=== PATIENT | female | born 1980 | race Caucasian/White ===

== ENCOUNTER 2016-09-15 11:34 | Emergency (ER) | payer OTHER ==
[~2016-09-15 11:34] MED LIST: ACETAZOLAMIDE250 MG; ALBUTEROL17 GM; ANAPROX DS550 MG PO; BENTYL20 MG PO; COMPAZINE10 M PO; ELAVIL50 MG; HYDROCODONE/APA1 TAB; LORATADINE10 MG; PHENERGAN25 MG PO; PHENERGAN50 MG PO; TOPA; TOPAMAX25 MG; ULTRAM50 MG; XANAX0.25 MG; XOPENEX HFA15 GM; ZOLOFT100 MG
[2016-09-15] MEDS ORDERED: ALLEGRA ALLERG180 M1 PO (11:41)
[2016-09-15] MEDS ORDERED: ULTRAM50 M1 PO (12:28)
== END 2016-09-15 13:13 ==
LOC: EDMED 11:34
DX: T23.132A Burn of first degree of multiple left fingers (nail), not including thumb, initial encounter (principal); T23.131A Burn of first degree of multiple right fingers (nail), not including thumb, initial encounter; T31.0 Burns involving less than 10% of body surface; J45.909 Unspecified asthma, uncomplicated; Z91.041 Radiographic dye allergy status; Z88.8 Allergy status to other drugs, medicaments and biological substances; X15.8XXA Contact with other hot household appliances, initial encounter; Y92.69 Other specified industrial and construction area as the place of occurrence of the external cause; Y99.0 Civilian activity done for income or pay